=== PATIENT | female | born 1965 | race Caucasian/White ===

== ENCOUNTER 2024-06-20 10:44 | Emergency (ER) | payer SELFPAY ==
[~2024-06-20] VITALS: Ht 157.5 cm; Wt 56.2 kg
[2024-06-20 11:11] VITALS: BP 132/72; TEMP 97.3; O2SAT 100
== END 2024-06-20 12:02 | disposition left against medical advice (07) ==
LOC: M ED 10:44
DX: Z53.21 Procedure and treatment not carried out due to patient leaving prior to being seen by health care provider (principal)